=== PATIENT | female | born 1945 | race Caucasian/White ===

== ENCOUNTER 2023-08-08 10:24 | Emergency (ER) | payer OTHER ==
[~2023-08-08] VITALS: Ht 172.7 cm; Wt 67.0 kg
[2023-08-08 10:29] VITALS: O2SAT 98
[2023-08-08] MEDS: ASPIRIN 81MG TABLET PO ONE (11:40)
[2023-08-08 11:44] LABS: BASOPHILS % 0.7 % (0.0-2.0); HEMATOCRIT. 32.8 % (36.0-48.0); HEMOGLOBIN. 10.5 g/dL (12.0-16.0); LYMPHOCYTES % 26.6 % (20.0-50.0); MEAN CORPUSCULAR HEMOGLOBIN 27.6 pg (28.0-32.0); MEAN CORPUSCULAR HGB CONC 32.1 g/dL (31.0-37.0); MEAN PLATELET VOLUME 6.8 fl (7.4-10.4); MONOCYTES % 5.6 % (2.0-8.0); NEUTROPHILS % 66.1 % (40.0-76.0); PLATELET 359 x1000/uL (130-400); RED BLOOD CELL COUNT 3.82 mill/uL (4.2-5.4); RED CELL DISTRIBUTION WIDTH 13.1 % (11.6-14.6); WHITE BLOOD COUNT 6.9 x1000/uL (4.5-11.0)
[2023-08-08 12:02] LABS: ALANINE AMINOTRANSFERASE 10 IU/L (10-49); ALBUMIN 4.6 g/dL (3.2-4.8); ASPARTATE AMINOTRANSFERASE 19 IU/L (<34); BILIRUBIN TOTAL 0.6 mg/dL (0.1-1.0); CALCIUM 9.7 mg/dL (8.7-10.4); CARBON DIOXIDE 25 mEq/L (21-32); CHLORIDE 105 mEq/L (98-107); CREATININE 1.5 mg/dL (0.6-1.0); GLUCOSE 68 mg/dL (70-105); POTASSIUM 3.8 mEq/L (3.5-5.1); PROTEIN TOTAL 7.9 g/dL (6.0-8.3); SODIUM 139 mEq/L (136-145); TROPONIN I HIGH SENSITIVITY 7 ng/L (3.0-34); UREA NITROGEN BLOOD 30 mg/dL (9-23)
[2023-08-08 12:20] LABS: ETHANOL BLOOD < 10 mg/dL (<10)
[2023-08-08 12:32] LABS: CLARITY URINE CLOUDY (CLEAR); COLOR URINE YELLOW (YELLOW); GLUCOSE URINE NEGATIVE (NEGATIVE); KETONES URINE NEGATIVE (NEGATIVE); LEUKOCYTE ESTERASE URINE 3+ (NEGATIVE); NITRITE URINE NEGATIVE (NEGATIVE); OCCULT BLOOD URINE TRACE (NEGATIVE); PH URINE 7.5 (4.5-8.0); PROTEIN URINE TRACE (NEGATIVE); SPECIFIC GRAVITY URINE 1.014 (1.005-1.030); UROBILINOGEN URINE 0.2 E.U./dL (0.2-1.0)
[2023-08-08 12:55] LABS: *AMPHETAMINES SCREEN URINE NEGATIVE (NEGATIVE); *BARBITURATES SCREEN URINE NEGATIVE (NEGATIVE); *BENZODIAZEPINES SCREEN URINE NEGATIVE (NEGATIVE); *COCAINE SCREEN URINE NEGATIVE (NEGATIVE); CANNABINOID URINE SCREEN NEGATIVE (NEGATIVE); ECSTASY MDMA SCREEN URINE NEGATIVE (NEGATIVE); METHADONE URINE SCREEN Neg (NEGATIVE); OPIATES URINE SCREEN NEGATIVE (NEGATIVE); PHENCYCLIDINE URINE SCREEN NEGATIVE (NEGATIVE)
[2023-08-08 13:06] LABS: SQUAMOUS EPITHELIAL CELL URINE 2+ /lpf (RARE/1+); WBC URINE 50-100 /hpf (0-2)
[2023-08-08 13:08] LABS: BACTERIA URINE 3+; RBC URINE 0-2 /hpf (0-2)
[2023-08-08] MEDS ORDERED: CEFTRIAXONE 1GM PREMIX 50 ML IV ONE (14:00)
[2023-08-08] MEDS: IOHEXOL-350 100 ML BOTTLE ONE (15:00)
[2023-08-08] MEDS: SODIUM CHLORIDE 0.9% 1,000 ML IV ONE (15:08)
[2023-08-08] MEDS: CEFTRIAXONE 1GM PREMIX 50 ML IV NR (15:08)
[2023-08-08] MEDS: LABETALOL 5MG/ML SYR 20 MG/4 ML SYRINGE IV NR (15:37)
[2023-08-08 17:10] VITALS: BP 185/92; PULSE 79; RESP 16; TEMP 98.4
== END 2023-08-08 18:03 | disposition short-term general hospital (02) ==
LOC: ER 11:44 → CANBEDREQ 15:41 → ER 18:03
DX: I63.9 Cerebral infarction, unspecified (principal); I10 Essential (primary) hypertension; N17.9 Acute kidney failure, unspecified; D64.9 Anemia, unspecified; Z86.73 Personal history of transient ischemic attack (TIA), and cerebral infarction without residual deficits; Z88.2 Allergy status to sulfonamides
CPT/HCPCS: 80053; 80305; 81003; 80320; 82962; 85025; 85610; 84484; 36415; 71045; 70496; 70498; 70450; 93005; 96365; 96375; 99291; Q9967; J0696; J3490; J7030; G0480